=== PATIENT | male | born 1970 | race African-American/Black ===

== ENCOUNTER 2024-12-16 15:38 | Emergency (ER) | payer OTHER ==
[~2024-12-16] VITALS: Ht 182.9 cm; Wt 106.5 kg
[2024-12-16 15:43] VITALS: O2SAT 100
[2024-12-16 15:45] VITALS: BP 122/76; PULSE 80; RESP 16; TEMP 36.9; O2SAT 100
[2024-12-16] MEDS: KETOROLAC 15MG/ML VIAL IM ONE (17:19)
[2024-12-16] MEDS: CYCLOBENZAPRINE 10MG TABLET PO ONE (17:19)
== END 2024-12-16 18:34 | disposition left against medical advice (07) ==
LOC: ER 15:38
DX: M54.9 Dorsalgia, unspecified (principal); Z76.0 Encounter for issue of repeat prescription; Z98.890 Other specified postprocedural states; Z53.21 Procedure and treatment not carried out due to patient leaving prior to being seen by health care provider
CPT/HCPCS: 99283; 96372; J1885